=== PATIENT | male | born 1970 | race Caucasian/White ===

== ENCOUNTER 2018-10-04 13:30 | Emergency (ER) | payer SELFPAY ==
[~2018-10-04] VITALS: Ht 188 cm; Wt 90.7 kg
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
--- OUTSIDE RECORDS SUMMARY | 2018-10-04 13:39 | XMS REPORT | CCD ---
Author DEDE Thomason Organization Unknown Address [address] [facility] [address] [place], [place] [address] Care Team Providers Care Mortgage Loan Computation Clerk Name Role Phone DIANA ROSSI MD Attphys DIANA ROSSI MD Prisurg Vital Signs Unknown. Allergies Unknown. Procedures Unknown. History of Immunizations Unknown. Problems Unknown. Results Unknown. Medications Unknown. Medications Administered Unknown. Encounters Encounter Diagnosis Diagnosis Code Start Date LUMBAGO 7242 10/06/2013 Social History Smoking Status Code Start Date End Date Current every day smoker [id number] Patient Decision Aids Unknown. Instructions You were admitted to [facility] on 10/06/2013 with a principle diagnosis of LUMBAGO. You were discharged from [facility] on 10/06/2013. Should you have any questions prior to discharge, please contact a member of your healthcare team. If you have left the hospital and have any questions, please contact your primary care physician. Chief Complaint and Reason For Visit Chief Complaint Date of Onset BACK PAIN Function Status Unknown. Plan of Care Unknown. Referral/Transition of Care Unknown.
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
[2018-10-04] MEDS ORDERED: NS IV 1000 ML 1,000 ML IV ONE (13:49)
[2018-10-04] MEDS ORDERED: LORazepam INJ 2 MG/ML (ATIVAN) VIAL IVP ONE (14:00)
[2018-10-04 14:27] LABS: BASOPHILS % (AUTO) 1 % (0-10); EOSINOPHILS # (AUTO) 0.2 10^3/uL (0.0-0.3); EOSINOPHILS % (AUTO) 2 % (0-10); HEMATOCRIT 45 % (40-54); HEMOGLOBIN 14.4 G/DL (13.3-17.7); LYMPHOCYTES # (AUTO) 1.4 X 10^3 (1.0-4.0); LYMPHOCYTES % (AUTO) 19 % (12-44); MEAN CORPUSCULAR HEMOGLOBIN 29 PG (25-34); MEAN CORPUSCULAR HGB CONC 32 G/DL (32-36); MEAN CORPUSCULAR VOLUME 90 FL (80-99); MEAN PLATELET VOLUME 8.8 FL (7.4-10.4); MONOCYTES % (AUTO) 13 % (0-12); NEUTROPHILS # (AUTO) 4.7 X 10^3 (1.8-7.8); NEUTROPHILS % (AUTO) 64 % (42-75); PLATELET COUNT 322 10^3/uL (130-400); RED BLOOD COUNT 4.94 10^6/uL (4.35-5.85); RED CELL DISTRIBUTION WIDTH 13.4 % (10.0-14.5); WHITE BLOOD COUNT 7.3 10^3/uL (4.3-11.0)
[2018-10-04 14:42] LABS: INR 1.1 (0.8-1.4); PROTHROMBIN TIME PATIENT 14.2 SEC (12.2-14.7)
[2018-10-04 14:49] LABS: ALANINE AMINOTRANSFERASE 23 U/L (0-55); ALBUMIN 3.9 GM/DL (3.2-4.5); ALKALINE PHOSPHATASE 79 U/L (40-136); BILIRUBIN,TOTAL 0.2 MG/DL (0.1-1.0); BUN/CREATININE RATIO 29; CALCIUM 9.5 MG/DL (8.5-10.1); CARBON DIOXIDE 25 MMOL/L (21-32); CHLORIDE 100 MMOL/L (98-107); CREATININE SERUM 0.94 MG/DL (0.60-1.30); GFR ESTIMATED > 60; GLUCOSE 119 MG/DL (70-105); POTASSIUM 4.8 MMOL/L (3.6-5.0); SALICYLATE < 5.0 MG/DL (5.0-20.0); SODIUM 135 MMOL/L (135-145); TOTAL PROTEIN 8.1 GM/DL (6.4-8.2)
[2018-10-04 14:51] LABS: ACETAMINOPHEN < 10 UG/ML (10-30)
[2018-10-04] MEDS ORDERED: ACETAMINOPHEN 500 MG TAB (TYLENOL) PO ONE (15:30)
[2018-10-04] MEDS ORDERED: KETOROLAC 30 MG/ML VIAL IVP ONE (15:30)
[2018-10-04 15:31] LABS: BILIRUBIN,URINE NEGATIVE (NEGATIVE); CLARITY,URINE CLEAR; COLOR,URINE YELLOW; GLUCOSE, URINE (UA) NEGATIVE (NEGATIVE); KETONES,URINE NEGATIVE (NEGATIVE); LEUKOCYTE ESTERASE ,URINE NEGATIVE (NEGATIVE); NITRITE,URINE NEGATIVE (NEGATIVE); PH,URINE 6.5 (5-9); PROTEIN,URINE NEGATIVE (NEGATIVE); UROBILINOGEN,URINE NORMAL (NORMAL)
[2018-10-04 15:44] LABS: BACTERIA,URINE NEGATIVE /HPF
[2018-10-04 15:47] LABS: AMPHETAMINE SCREEN, URINE POSITIVE (NEGATIVE); BARBITURATE SCREEN URINE NEGATIVE (NEGATIVE); BENZODIAZEPINES SCREEN URINE NEGATIVE (NEGATIVE); CANNABINOID SCREEN, URINE POSITIVE (NEGATIVE); COCAINE SCREEN URINE NEGATIVE (NEGATIVE); METHADONE STAT NEGATIVE (NEGATIVE); METHAMPHETAMINE SCREEN URINE S POSITIVE (NEGATIVE); OPIATE SCREEN URINE NEGATIVE (NEGATIVE); OXYCODONE STAT NEGATIVE (NEGATIVE); PROPOXYPHENE STAT NEGATIVE (NEGATIVE); TRICYCLIC ANTIDEPRESSANTS SCRE NEGATIVE (NEGATIVE)
[2018-10-04] MEDS ORDERED: CEPH-507 PO (17:33)
[2018-10-04] MEDS ORDERED: CEPHALEXIN 250 MG (KEFLEX) CAP PO ONE ×2 (17:33→17:45)
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
--- NOTE | 2018-10-04 17:36 | Diagnostic Imaging Report ---
PROCEDURE: CT head and CT cervical spine without contrast. TECHNIQUE: Multiple contiguous axial images were obtained through the brain and cervical spine without the use of intravenous contrast. Sagittal and coronal reformations through the cervical spine were then performed. INDICATION: Head and neck pain, seizure. COMPARISON: None. CT HEAD: There is some minimal cerebral volume loss. No focus of acute ischemia or hemorrhage is seen. The ventricular size is normal. There is no extra-axial fluid collection. No focus of acute ischemia or hemorrhage is identified. The bony calvarium is intact. There is mucosal thickening in the right maxillary sinus. Mastoids are clear. IMPRESSION: No acute intracranial abnormalities. CT CERVICAL SPINE: There is some motion artifact at the cervicothoracic junction. Otherwise, alignment is normal. There is no traumatic malalignment, fracture, or significant degeneration. There is no osseous lesion. IMPRESSION: No traumatic malalignment or fracture. Dictated by: Dictated on workstation # [id number]
[2018-10-04 17:41] VITALS: BP 132/91
== END 2018-10-04 17:41 | disposition home or self-care (01) ==
LOC: EDUNIT# 13:30 → ER 13:34
DX: S09.90XA Unspecified injury of head, initial encounter (principal); F19.10 Other psychoactive substance abuse, uncomplicated; L03.115 Cellulitis of right lower limb; E11.9 Type 2 diabetes mellitus without complications; F15.10 Other stimulant abuse, uncomplicated; F11.10 Opioid abuse, uncomplicated; F12.10 Cannabis abuse, uncomplicated; F17.210 Nicotine dependence, cigarettes, uncomplicated; Z88.0 Allergy status to penicillin; X58.XXXA Exposure to other specified factors, initial encounter
CPT/HCPCS: 36415; 70450; 72125; 80053; 80306; 80320; 80329; 81000; 83605; 85025; 85610; 85730; 87040

== ENCOUNTER 2019-02-26 12:53 | Emergency (ER) | payer OTHER ==
[~2019-02-26 12:53] MED LIST: CEPH-507 PO
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
--- NOTE | 2019-02-26 13:06 | NUR ---
pt called from waiting room. data capture clerk informs this rn pt left to use rr around the remy.
--- NOTE | 2019-02-26 13:12 | NUR ---
Pt called from waiting room at this time and ambulated to room 8. Pt states, "I need some help." Pt reports he is going through some marital issues and is currently living at a friends house. Pt states, "I dont think I should be alone right now." When pt asked if he is suicidal, pt reports "I have been having some thoughts." Pt states he does not have access to a gun but has thought about hanging himself. Pt appears very anxious and is pulling as bp cuff and pulse ox chords. Pt states, "I think this was a bad idea, I dont want to be admitted any where." Pt informed once we get all his triage information Dr would come in and see him and we could have [facility] come screen him as well. Pt informed that we are here to help and try to figure out a plan for his care. Pt states he agrees to wait in his room and see the Dr. Pt states, "I will not go to [place] in patient or anywhere else." Pt starts packing up his belongings indicating he may leave, this rn goes to find Doctor to see patient.
--- NOTE | 2019-02-26 13:20 | NUR ---
pt seen leaving room walking towards ED exit. Pt refuses help or treatment and agrees to sign ama form. Pt refuses to have [facility] follow up on him as well when offered. PD called for pt welfare check.
== END 2019-02-26 13:20 | disposition left against medical advice (07) ==
LOC: EDUNIT# 12:53 → ER 12:54
DX: F29 Unspecified psychosis not due to a substance or known physiological condition (principal)

== ENCOUNTER 2019-03-18 14:56 | Emergency (ER) | payer OTHER ==
[~2019-03-18] VITALS: Ht 188 cm; Wt 95.3 kg
[2019-03-18] MEDS ORDERED: HYDR-4226 PO (15:14)
[2019-03-18] MEDS ORDERED: SULF1TAB35 PO (15:14)
[2019-03-18] MEDS ORDERED: CEPH-507 PO (15:14)
--- NOTE | 2019-03-18 15:14 | ED Integumentary General ---
General Chief Complaint: Skin/Wound Problems Stated Complaint: MRSA Nursing Triage Note: PATIENT STATES THAT HE HAD A SMALL CUT ON HIS RIGHT LOWER LEG THAT BEGAN TO LOOK INFECTED 3 DAYS AGO. HE JUST GOT OUT OF S[facility]IOR LIVING TODAY SO DECIDED TO COME TO THE ER. Source: patient Exam Limitations: no limitations History of Present Illness Date Seen by Provider: Mar 18, 2019 Time Seen by Provider: 15:09 Initial Comments To ER per private vehicle from home with reports of an infection to the right knee. This began about a week ago as a small cut, about 3 days ago while in residential which started to look infected with some redness. He has got out of residential today so decided to come this looked at. No fevers or chills. Timing/Duration: constant, getting worse Severity: moderate Associated Symptoms: denies symptoms Allergies and Home Medications Allergies Coded Allergies: Penicillins (Verified Allergy, Unknown, 10/04/18) amoxicillin (Verified Allergy, Unknown, 10/04/18) Home Medications Cephalexin 500 Mg Capsule, 500 MG PO TID Prescribed by: RENETTA CRISTOBAL on 10/04/18 4175 Patient Home Medication List Home Medication List Reviewed: Yes Review of Systems Review of Systems Constitutional: see HPI; No chills, No fever EENTM: see HPI Respiratory: no symptoms reported Cardiovascular: no symptoms reported Genitourinary: no symptoms reported Musculoskeletal: no symptoms reported Skin: see HPI Psychiatric/Neurological: No Symptoms Reported Endocrine: No Symptoms Reported Past Ocfnqbx-Eyvfln-Avxrai Hx Patient Social History Alcohol Use: Rarely Uses Number of Drinks Today: II Alcohol Beverage of Choice: Other Recreational Drug Use: No Drug of Choice: meth, weed, heroine Smoking Status: Current Everyday Smoker Type Used: Cigarettes 2nd Hand Smoke Exposure: Yes Recent Foreign Travel: No Contact w/Someone Who Travel: No Recent Infectious Disease Expo: No Recent Hopitalizations: No Physical Abuse: No Sexual Abuse: No Past Medical History Surgeries: Yes Respiratory: No Cardiac: Yes Neurological: No Genitourinary: No Gastrointestinal: No Musculoskeletal: No Endocrine: Yes Diabetes, Non-Insulin dep HEENT: No Cancer: No Psychosocial: No Integumentary: No Blood Disorders: No Adverse Reaction/Blood Tranf: No Physical Exam Vital Signs Vital Signs - First Documented 03/18/19 15:00 Temp 98.4 Pulse 126 Resp 20 B/P (MAP) 134/90 (105) Pulse Ox 96 Capillary Refill : Less Than 3 Seconds General Appearance: WD/WN, no apparent distress Respiratory: no respiratory distress, no accessory muscle use Gastrointestinal: normal bowel sounds, non tender Neurologic/Psychiatric: alert, normal mood/affect, oriented x 3 Skin: normal color, warm/dry Skin Problem Location: lower extremities Skin Problem Character: abscess, other (well-demarcated area of erythema about 6 cm to the medial aspect of the right knee with a 2 cm area of induration to the center of this. No drainage. No fluctuance.) Progress/Results/Core Measures Results/Orders Vital Signs/I&O 03/18/19 15:00 Temp 98.4 Pulse 126 Resp 20 B/P (MAP) 134/90 (105) Pulse Ox 96 Blood Pressure Mean: 105 Departure Impression Primary Impression: Abscess Additional Impression: Cellulitis Qualified Codes: L03.115 - Cellulitis of right lower limb Disposition: HOME, SELF-CARE Condition: Stable Departure-Patient Inst. Referrals: NO,LOCAL PHYSICIAN (PCP/Family) Primary Care Physician Patient Instructions: Cellulitis (Skin Infection), Adult (DC) Add. Discharge Instructions: 1. Warm compresses to this area. He should notice improvement in about 2-3 days. The pain medication and both antibiotics as directed. All discharge instructions reviewed with patient and/or family. Voiced understanding. Scripts Sulfamethoxazole/Trimethoprim (Bactrim Ds Tablet) 1 Each Tablet 1 EACH PO BID, #14 TAB Prov: SHALONDA MEADOWS APRN 03/18/19 Cephalexin (Keflex) 500 Mg Capsule 500 MG PO TID, #21 CAP Prov: SHALONDA MEADOWS APRN 03/18/19 Hydrocodone/Acetaminophen ([place] 5-325 Tablet) 1 Each Tablet 1 TAB PO Q4-6HR for Pain MDD 10 TABS for 2 Days, #10 TAB Do not fill unless Keflex and Bactrim is also filled Prov: SHALONDA MEADOWS APRN 03/18/19 SHALONDA MEADOWS APRN Mar 18, 2019 15:14
[2019-03-18 15:20] VITALS: BP 134/90
== END 2019-03-18 15:22 | disposition home or self-care (01) ==
LOC: ER 14:56 → EDUNIT# 14:56 → ER 15:22
DX: L03.115 Cellulitis of right lower limb (principal); L02.415 Cutaneous abscess of right lower limb; E11.9 Type 2 diabetes mellitus without complications; F17.210 Nicotine dependence, cigarettes, uncomplicated; Z88.0 Allergy status to penicillin; Z88.1 Allergy status to other antibiotic agents
CPT/HCPCS: 99282

== ENCOUNTER 2019-06-02 16:55 | Inpatient (IN) | payer OTHER | END 2019-06-03 14:10 | disposition left against medical advice (07) | LOC: 4TH 16:55 ==

== ENCOUNTER 2019-07-01 14:59 | Emergency (ER) | payer OTHER ==
[~2019-07-01] VITALS: Ht 190 cm; Wt 93.1 kg
[~2019-07-01 14:59] MED LIST changes: +HYDR-4226 PO; +SULF1TAB35 PO
--- NOTE | 2019-07-01 17:07 | NUR ---
PT LEFT ED, STATES GOING TO MEET HIS DISCHARGED AT THIS X
[2019-07-01 17:08] VITALS: BP 144/87
== END 2019-07-01 17:08 | disposition left against medical advice (07) ==
LOC: EDUNIT# 14:59 → ER 15:01
DX: E11.69 Type 2 diabetes mellitus with other specified complication (principal); M86.9 Osteomyelitis, unspecified
CPT/HCPCS: 99283

== ENCOUNTER 2019-07-14 21:38 | Observation (INO) | payer OTHER ==
[~2019-07-14] VITALS: Ht 187.9 cm; Wt 85.7 kg
--- NOTE | 2019-07-14 22:15 | NUR ---
pt denies being able to void at this time. informed he needed to remain npo until after evaluated by e.d. provider.
[2019-07-14] MEDS ORDERED: NS IV 1000 ML 1,000 ML IV SCH (22:25)
[2019-07-14 22:28] LABS: BASOPHILS % (AUTO) 1 % (0-10); EOSINOPHILS # (AUTO) 0.3 10^3/uL (0.0-0.3); EOSINOPHILS % (AUTO) 5 % (0-10); HEMATOCRIT 41 % (40-54); HEMOGLOBIN 13.4 G/DL (13.3-17.7); LYMPHOCYTES # (AUTO) 2.4 X 10^3 (1.0-4.0); LYMPHOCYTES % (AUTO) 35 % (12-44); MEAN CORPUSCULAR HEMOGLOBIN 29 PG (25-34); MEAN CORPUSCULAR HGB CONC 32 G/DL (32-36); MEAN CORPUSCULAR VOLUME 90 FL (80-99); MEAN PLATELET VOLUME 9.1 FL (7.4-10.4); MONOCYTES # (AUTO) 0.6 X 10^3 (0.0-1.0); MONOCYTES % (AUTO) 9 % (0-12); NEUTROPHILS # (AUTO) 3.6 X 10^3 (1.8-7.8); NEUTROPHILS % (AUTO) 51 % (42-75); PLATELET COUNT 298 10^3/uL (130-400); RED CELL DISTRIBUTION WIDTH 14.5 % (10.0-14.5)
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
[2019-07-14 22:40] LABS: INR 1.1 (0.8-1.4); PROTHROMBIN TIME PATIENT 14.7 SEC (12.2-14.7)
[2019-07-14] MEDS ORDERED: fentaNYL INJECTION 100 MCG/2 ML AMP IVP ONE (22:45)
[2019-07-14 22:48] LABS: ALANINE AMINOTRANSFERASE 26 U/L (0-55); ALBUMIN 3.7 GM/DL (3.2-4.5); ALKALINE PHOSPHATASE 52 U/L (40-136); BILIRUBIN,TOTAL 0.3 MG/DL (0.1-1.0); BUN/CREATININE RATIO 19; CALCIUM 8.8 MG/DL (8.5-10.1); CARBON DIOXIDE 25 MMOL/L (21-32); CHLORIDE 102 MMOL/L (98-107); CREATININE SERUM 1.01 MG/DL (0.60-1.30); GFR ESTIMATED > 60; GLUCOSE 167 MG/DL (70-105); POTASSIUM 3.9 MMOL/L (3.6-5.0); SODIUM 139 MMOL/L (135-145); TOTAL PROTEIN 6.8 GM/DL (6.4-8.2)
[2019-07-14 22:53] LABS: BILIRUBIN,URINE NEGATIVE (NEGATIVE); CLARITY,URINE CLEAR; COLOR,URINE YELLOW; GLUCOSE, URINE (UA) NEGATIVE (NEGATIVE); KETONES,URINE NEGATIVE (NEGATIVE); LEUKOCYTE ESTERASE ,URINE NEGATIVE (NEGATIVE); NITRITE,URINE NEGATIVE (NEGATIVE); PH,URINE 6.5 (5-9); PROTEIN,URINE 1+ (NEGATIVE)
[2019-07-14 23:02] LABS: AMPHETAMINE SCREEN, URINE POSITIVE (NEGATIVE); BARBITURATE SCREEN URINE NEGATIVE (NEGATIVE); BENZODIAZEPINES SCREEN URINE NEGATIVE (NEGATIVE); CANNABINOID SCREEN, URINE POSITIVE (NEGATIVE); COCAINE SCREEN URINE NEGATIVE (NEGATIVE); METHADONE STAT NEGATIVE (NEGATIVE); METHAMPHETAMINE SCREEN URINE S NEGATIVE (NEGATIVE); OPIATE SCREEN URINE NEGATIVE (NEGATIVE); OXYCODONE STAT NEGATIVE (NEGATIVE); PROPOXYPHENE STAT NEGATIVE (NEGATIVE); TRICYCLIC ANTIDEPRESSANTS SCRE NEGATIVE (NEGATIVE)
[2019-07-14 23:05] LABS: AMORPHOUS SEDIMENT,UR MOD AMOR URATES /LPF; BACTERIA,URINE NEGATIVE /HPF
[2019-07-14] MEDS ORDERED: TETANUS,DIPTH,PERTUSS P/F (BOOSTRIX) 0.5 ML VIAL IM ONE (23:15)
--- NOTE | 2019-07-15 00:11 | NUR ---
BERNADETTE WELLS admitted to room 405-1, with an admitting diagnosis of OSTEOMYELITIS R 3RD TOE, IDDM, HX METH ABUSE, on 07/14/19 from ED via WC, accompanied by STAFF.BERNADETTE WELLS introduced to surroundings, call light, bed controls, phone, TV, temperature control, lights, meal times, smoking policy, visitor policy, side rail policy, bathrooms and showers. Patient Rights given to patient in the handbook. BERNADETTE WELLS verbalizes understanding that [facility] is not responsible for the loss or damage to any personal effects or valuables that are kept in the patients possession during their hospitalization. THE PATIENT'S PLAN OF CARE WAS DISCUSSED WITH THE PT, PT DENIES ANY QUESTIONS OR CONCERNS AT THIS TIME. BERNADETTE WELLS verbalizes understanding of Interdisciplinary Patient Education. Patient and/or family were informed about the Rapid Response Team and its purpose.
[2019-07-15] MEDS ORDERED: ONDANSETRON 4 MG/2 ML (SDV) Z0FRAN IV PRN (00:30)
[2019-07-15] MEDS ORDERED: ACETAMINOPHEN 325 MG TABLET PO PRN (00:30)
[2019-07-15] MEDS ORDERED: NS IV 1000 ML 1,000 ML IV SCH (00:30)
[2019-07-15 00:38] VITALS: BP 135/62
[2019-07-15] MEDS ORDERED: VANCOMYCIN 2000 MG/NS 500 ML IVPB IV SCH ×2 (00:45)
[2019-07-15] MEDS: LORazepam INJ 2 MG/ML (ATIVAN) VIAL IV PRN ×2 (00:55→07:00)
[2019-07-15] MEDS ORDERED: VANCOMYCIN 1000 MG/VIAL ONE (01:25)
[2019-07-15] MEDS ORDERED: NS IV 500 ML 500 ML ONE (01:26)
[2019-07-15] MEDS: fentaNYL INJECTION 100 MCG/2 ML AMP IV PRN ×2 (04:00→09:32)
[2019-07-15 04:25] VITALS: BP 130/76
[2019-07-15 05:45] LABS: BASOPHILS % (AUTO) 1 % (0-10); EOSINOPHILS # (AUTO) 0.4 10^3/uL (0.0-0.3); EOSINOPHILS % (AUTO) 6 % (0-10); HEMATOCRIT 39 % (40-54); HEMOGLOBIN 12.4 G/DL (13.3-17.7); LYMPHOCYTES # (AUTO) 2.1 X 10^3 (1.0-4.0); LYMPHOCYTES % (AUTO) 36 % (12-44); MEAN CORPUSCULAR HEMOGLOBIN 29 PG (25-34); MEAN CORPUSCULAR HGB CONC 32 G/DL (32-36); MEAN CORPUSCULAR VOLUME 91 FL (80-99); MONOCYTES # (AUTO) 0.7 X 10^3 (0.0-1.0); MONOCYTES % (AUTO) 12 % (0-12); NEUTROPHILS # (AUTO) 2.7 X 10^3 (1.8-7.8); NEUTROPHILS % (AUTO) 46 % (42-75); PLATELET COUNT 288 10^3/uL (130-400); RED CELL DISTRIBUTION WIDTH 14.7 % (10.0-14.5); WHITE BLOOD COUNT 5.8 10^3/uL (4.3-11.0)
[2019-07-15 06:00] LABS: ALANINE AMINOTRANSFERASE 23 U/L (0-55); ALBUMIN 3.2 GM/DL (3.2-4.5); ALKALINE PHOSPHATASE 50 U/L (40-136); BILIRUBIN,TOTAL 0.2 MG/DL (0.1-1.0); BUN/CREATININE RATIO 25; CALCIUM 8.2 MG/DL (8.5-10.1); CARBON DIOXIDE 22 MMOL/L (21-32); CHLORIDE 105 MMOL/L (98-107); GFR ESTIMATED > 60; GLUCOSE 146 MG/DL (70-105); POTASSIUM 3.8 MMOL/L (3.6-5.0); SODIUM 139 MMOL/L (135-145); TOTAL PROTEIN 5.6 GM/DL (6.4-8.2)
[2019-07-15] MEDS: inSUlin ASPART (NovoLOG) 1 UNIT/0.01 ML (CHARGE PER UNIT) SC SCH ×2 (06:13→10:52)
--- NOTE | 2019-07-15 06:52 | NUR ---
dr. jara notified of consult
--- NOTE | 2019-07-15 07:01 | NUR ---
PT REPORTS BEING ANXIOUS & REQUESTING PRN LORAZEPAM, LORAZEPAM GIVEN
--- NOTE | 2019-07-15 07:20 | Diagnostic Imaging Report ---
INDICATION: Right foot and toe pain patient has osteomyelitis, and family history of it. His right 3rd digit has a sore on it. COMPARISON STUDY: None FINDINGS: 3 views of the right foot demonstrates soft tissue swelling over the distal 3rd digit with some erosions consistent with osteomyelitis. IMPRESSION: There is osteomyelitis of the tuft of the right 3rd digit. Dictated by: Dictated on workstation # [id number]
--- NOTE | 2019-07-15 07:44 | NUR ---
VANCOMYCIN DOSING SCR 0.8; CRCL ~ 132; BOLUS VANC 2 GM ALREADY GIVEN THEN VANC 15 MG/KG X 85 KG ~ 1500 MG Q12H CHECK TROUGH LEVEL BEFORE 3RD DOSE 07/16 1300 HOLD DOSE AND CONTACT PHARMACY IF LEVEL IS GREATER THAN 20 OR LESS THAN 10
[2019-07-15 08:00] VITALS: BP 148/80
--- NOTE | 2019-07-15 08:42 | Consultation - Surgery ---
YOLANDA LOU,MED STUDENT 07/15/19 0842: History of Present Illness History of Present Illness Patient Consulted On(omar/time) 07/15/19 08:37 Date Seen by Provider: Jul 15, 2019 Time Seen by Provider: 08:30 History of Present Illness Consultation as requested for osteomyelitis of R 3rd toe. Patient seen and examined. Patient reports that wound on his R 3rd toe has been present for 7-8 months. He presented to the ED last night due to increased pain in the toe. The pain is made worse with ambulation. He reports that "smoking pot" and drinking alcohol make the pain better. Associated symptoms include subjective fever, dizziness, and nausea. The pain does not radiate. He rates the pain as an 8/10. Patient was hospitalized several weeks ago for the same complaint but left AMA after a toe amputation was suggested. He now states that he would rather try antibiotic therapy prior to surgical intervention. He has a longstanding history of uncontrolled diabetes and is noncompliant with treatment. He states that he is prescribed metformin but he does not take it and when asked why, he states "I don't know". Patient left AMA before treatment options could be discussed. Allergies and Home Medications Allergies Coded Allergies: Penicillins (Verified Allergy, Unknown, 06/02/19) amoxicillin (Verified Allergy, Unknown, 06/02/19) morphine (Verified Adverse Reaction, Mild, 07/15/19) headache Home Medications No Active Prescriptions or Reported Meds Patient Home Medication List Home Medication List Reviewed: Yes Past Jkqywiz-Dgjoid-Qrrhdw Hx Patient Social History Alcohol Use: Regular Use (1/2 pint, 1-2x/week) Number of Drinks Today: II Recreational Drug Use: Yes Drug of Choice: denies at this time, however previous IV meth. Smoking Status: Current Everyday Smoker (1/2 ppd) Type Used: Cigarettes 2nd Hand Smoke Exposure: Yes Recent Foreign Travel: No Contact w/Someone Who Travel: No Recent Infectious Disease Expo: No Recent Hopitalizations: No Immunizations Up To Date Tetanus Booster (TDap): Unknown Seasonal Allergies Seasonal Allergies: No Surgeries History of Surgeries: Yes (knee) Surgeries: Orthopedic (discectomy, knee arthroscopy) Respiratory History of Respiratory Disorde: No Cardiovascular History of Cardiac Disorders: No Neurological History of Neurological Disord: No Genitourinary History of Genitourinary Disor: No Gastrointestinal History of Gastrointestinal Di: No Musculoskeletal History of Musculoskeletal Dis: No Endocrine History of Endocrine Disorders: Yes (noncompliant) Endocrine Disorders: Diabetes, Non-Insulin dep HEENT History of HEENT Disorders: No Cancer History of Cancer: No Psychosocial History of Psychiatric Problem: No Integumentary History of Skin or Integumenta: No Blood Transfusions History of Blood Disorders: No Adverse Reaction to a Blood Tr: No Family Medical History Significant Family History: Cancer (breast cancer - mom), Diabetes (dad) Review of Systems-General Constitutional: No chills; fever EENTM: No hearing loss, No vision loss Respiratory: No cough, No short of breath Cardiovascular: No chest pain, No palpitations Gastrointestinal: No abdominal pain; nausea Genitourinary: No dysuria, No frequency Musculoskeletal: No joint pain; other (toe pain) Skin: No rash; other (toe ulcer) Psychiatric/Neurological: Denies Headache; Numbness (neuropathy) Physical Exam-General Problems Physical Exam Vital Signs Vital Signs - First Documented 07/14/19 21:45 Temp 35.9 Pulse 101 Resp 18 B/P (MAP) 133/90 (104) Pulse Ox 99 O2 Delivery Room Air Capillary Refill : Less Than 3 Seconds General Appearance: WD/WN, no apparent distress HEENT: PERRL/EOMI, pharynx normal Neck: non-tender, supple Respiratory: chest non-tender, lungs clear, normal breath sounds, no respiratory distress, no accessory muscle use Cardiovascular: regular rate, rhythm, no murmur Gastrointestinal: non tender, soft; No distended Extremities: non-tender, no pedal edema Skin: warm/dry, other (dry appearing ulceration on R third toe) Lymphatic: no adenopathy Data Review Labs Laboratory Tests 07/14/19 22:15: White Blood Count 7.0, Red Blood Count 4.57, Hemoglobin 13.4, Hematocrit 41, Mean Corpuscular Volume 90, Mean Corpuscular Hemoglobin 29, Mean Corpuscular Hemoglobin Concent 32, Red Cell Distribution Width 14.5, Platelet Count 298, Mean Platelet Volume 9.1, Neutrophils (%) (Auto) 51, Lymphocytes (%) (Auto) 35, Monocytes (%) (Auto) 9, Eosinophils (%) (Auto) 5, Basophils (%) (Auto) 1, Neutrophils # (Auto) 3.6, Lymphocytes # (Auto) 2.4, Monocytes # (Auto) 0.6, Eosinophils # (Auto) 0.3, Basophils # (Auto) 0.0, Prothrombin Time 14.7, INR Comment 1.1, Activated Partial Thromboplast Time 29, Sodium Level 139, Potassium Level 3.9, Chloride Level 102, Carbon Dioxide Level 25, Anion Gap 12, Blood Urea Nitrogen 19H, Creatinine 1.01, Estimat Glomerular Filtration Rate > 60, BUN/Creatinine Ratio 19, Glucose Level 167H, Lactic Acid Level 1.92, Calcium Level 8.8, Corrected Calcium 9.0, Total Bilirubin 0.3, Aspartate Amino Transf (AST/SGOT) 21, Alanine Aminotransferase (ALT/SGPT) 26, Alkaline Phosphatase 52, C-Reactive Protein High Sensitivity 0.20, Total Protein 6.8, Albumin 3.7 07/14/19 22:44: Urine Color YELLOW, Urine Clarity CLEAR, Urine pH 6.5, Urine Specific Bryan 1.020, Urine Protein 1+H, Urine Glucose (UA) NEGATIVE, Urine Ketones NEGATIVE, Urine Nitrite NEGATIVE, Urine Bilirubin NEGATIVE, Urine Urobilinogen 1, Urine Leukocyte Esterase NEGATIVE, Urine RBC (Auto) NEGATIVE, Urine RBC NONE, Urine WBC NONE, Urine Crystals PRESENTH, Urine Amorphous Sediment MOD ROSALINO URATESH, Urine Bacteria NEGATIVE, Urine Casts NONE, Urine Mucus NEGATIVE, Urine Culture Indicated NO, Urine Opiates Screen NEGATIVE, Urine Oxycodone Screen NEGATIVE, Urine Methadone Screen NEGATIVE, Urine Propoxyphene Screen NEGATIVE, Urine Barbiturates Screen NEGATIVE, Ur Tricyclic Antidepressants Screen NEGATIVE, Urine Phencyclidine Screen NEGATIVE, Urine Amphetamines Screen POSITIVEH, Urine Methamphetamines Screen NEGATIVE, Urine Benzodiazepines Screen NEGATIVE, Urine Cocaine Screen NEGATIVE, Urine Cannabinoids Screen POSITIVEH 07/15/19 05:20: White Blood Count 5.8, Red Blood Count 4.31L, Hemoglobin 12.4L, Hematocrit 39L, Mean Corpuscular Volume 91, Mean Corpuscular Hemoglobin 29, Mean Corpuscular Hemoglobin Concent 32, Red Cell Distribution Width 14.7H, Platelet Count 288, Mean Platelet Volume 9.0, Neutrophils (%) (Auto) 46, Lymphocytes (%) (Auto) 36, Monocytes (%) (Auto) 12, Eosinophils (%) (Auto) 6, Basophils (%) (Auto) 1, Neutrophils # (Auto) 2.7, Lymphocytes # (Auto) 2.1, Monocytes # (Auto) 0.7, Eosinophils # (Auto) 0.4H, Basophils # (Auto) 0.0, Sodium Level 139, Potassium Level 3.8, Chloride Level 105, Carbon Dioxide Level 22, Anion Gap 12, Blood Urea Nitrogen 20H, Creatinine 0.80, Estimat Glomerular Filtration Rate > 60, BUN/Creatinine Ratio 25, Glucose Level 146H, Calcium Level 8.2L, Corrected Calcium 8.8, Total Bilirubin 0.2, Aspartate Amino Transf (AST/SGOT) 19, Alanine Aminotransferase (ALT/SGPT) 23, Alkaline Phosphatase 50, Total Protein 5.6L, Albumin 3.2 Assessment/Plan Assessment/Plan Assessment/Plan R 3rd toe ulceration Osteomyelitis Patient left AMA before treatment options could be discussed. Clinical Quality Measures DVT/VTE Risk/Contraindication: Risk Factor Score Per Nursin RFS Level Per Nursing on Admit: 4+=Very High BRENDAN GRIMALDO DO 07/15/19 1943: Allergies and Home Medications Allergies Coded Allergies: Penicillins (Verified Allergy, Unknown, 06/02/19) amoxicillin (Verified Allergy, Unknown, 06/02/19) morphine (Verified Adverse Reaction, Mild, 07/15/19) headache Home Medications No Active Prescriptions or Reported Meds Supervisory-Addendum Brief Verification & Attestation Participated in pt care: other Personally performed: other Care discussed with: other Procedures: other Pt left AMA before I saw him. YOLANDA LOU,MED STUDENT Jul 15, 2019 08:42 BRENDAN GUTIÉRREZ DO Jul 15, 2019 19:43 POS
--- NOTE | 2019-07-15 09:03 | NUR ---
SPOKE WITH THE PATIENT ABOUT MEDICATIONS. HE STATES HE DOES NOT TAKE ANYTHING PRESCRIPTION OR OTC AT THIS TIME. HE DOES NOT REALLY HAVE A PREFERENCE OF PHARMACY, HE STATES [facility] HOWEVER HE DOES EXPRESS CONCERN ABOUT BEING ABLE TO AFFORD ANY MEDICATION IF IT IS PRESCRIBED TO HIM.
[2019-07-15] MEDS ORDERED: cefTRIAXone FOR IV USE 2,000 MG in WATER (STERILE) FOR INJECTION 20 ML IV SCH (10:15)
--- NOTE | 2019-07-15 10:53 | NUR ---
CM/SS spoke with the patient in regards to the SS consult. Patient stated that he does have court on 07/16 for a felony something, he was unsure of the charges. He is currently on [place] with [employer] [employer]. He wanted a District Court called to postpone his Court that is scheduled for tomorrow. Discussed would be willing to call District Court tomorrow if he was in surgery. He had left AMA last hospital stay. Patient was bouncing and moving all over bed and started to mess with his IV, stating that if no one wanted to help with his court date then he wasn't going to stay and would just have to leave to take care of that. He asked for the number for [facility] [address] [facility] and it was provided to him ([phone]). Nursing was updated and stated that he also has threatened to smoke in the bathroom.
--- NOTE | 2019-07-15 11:50 | NUR ---
IV DC'd. Catheter intact.
--- NOTE | 2019-07-15 11:50 | NUR ---
CM/SS spoke with the patient with RNing present after RNing requested SS to speak with him and possibly his employment security officer. Patient did not want to speak with his employment security officer, wanted to leave to see him as he was supposed to have reported after he was released from [facility] and did not report to his employment security officer. He did receive a call from Cristela with [facility] and asked that SS speak with her, she stated that he has been receiving services there and was trying to coordinate care for after he would have surgery. Discussed that if he wanted a SNF for post op recovery, referrals could be sent and could be a possibility. Discussed again that would not send anything this day to the Court and that if he stayed and was having surgery tomorrow then would send something to the court at that time.
--- NOTE | 2019-07-15 11:50 | NUR ---
Pt stated that he needed to leave the hospital. This RN informed the pt that leaving the hospital at this time would be leaving against medical advice. This RN also informed the pt of the risks of leaving against medical advice (worsening of infection) as well as the benefits to staying in the hospital to continue receiving care (resolution of infection). CM/ SS in the room at this time to offer assistance to help pt stay in the hospital to continue care, see CM/SS note. After discussion with CM/SS and this RN, pt refused assistance of CM/SS, pt requested again to leave against medical advice. Pt confrontational towards this RN and CM/SS. Dr. Hitchcock notified of pt's request. Against Medical Advice form signed, dated, witnessed, and placed in chart.
[2019-07-15] MEDS ORDERED: VANCOMYCIN INJECTION 1,500 MG in NS IV 500 ML 500 ML IV SCH (14:00)
--- NOTE | 2019-07-15 14:29 | Discharge Summary ---
Discharge Summary Hospital Course Final Diagnosis: T2DM with left diabetic foot ulcer Hospital Course Date of Admission: Jul 14, 2019 at 22:30 Admission Diagnosis : Type 2 diabetes mellitus with left diabetic foot ulcer Family Physician/Provider: Kim Mark Physician Date of Discharge: 07/15/19 Discharge Diagnosis: Type 2 diabetes mellitus with left diabetic foot ulcer Hospital Course: Collin Lewis is a 49yoM with PMH T2DM, polysubstance abuse, who was recently admitted with a diabetic foot ulcer and osteomyelitis and left AMA presented again with worsening toe pain. He was started on IV antibiotics and surgery was consulted. He stated that he was to have a court date tomorrow. patient services clerk was consulted and arrangements were made to contact them tomorrow to postpone his court date. He then said that he had to meet with his booking officer. We off ered to contact his booking officer and discuss the situation, but he refused. He again left AGAINST MEDICAL ADVICE. Labs and Pending Lab Test: Laboratory Tests 07/14/19 22:15: White Blood Count 7.0, Red Blood Count 4.57, Hemoglobin 13.4, Hematocrit 41, Mean Corpuscular Volume 90, Mean Corpuscular Hemoglobin 29, Mean Corpuscular Hemoglobin Concent 32, Red Cell Distribution Width 14.5, Platelet Count 298, Mean Platelet Volume 9.1, Neutrophils (%) (Auto) 51, Lymphocytes (%) (Auto) 35, Monocytes (%) (Auto) 9, Eosinophils (%) (Auto) 5, Basophils (%) (Auto) 1, Neutrophils # (Auto) 3.6, Lymphocytes # (Auto) 2.4, Monocytes # (Auto) 0.6, Eosinophils # (Auto) 0.3, Basophils # (Auto) 0.0, Prothrombin Time 14.7, INR Comment 1.1, Activated Partial Thromboplast Time 29, Sodium Level 139, Potassium Level 3.9, Chloride Level 102, Carbon Dioxide Level 25, Anion Gap 12, Blood Urea Nitrogen 19H, Creatinine 1.01, Estimat Glomerular Filtration Rate > 60, BUN/Creatinine Ratio 19, Glucose Level 167H, Lactic Acid Level 1.92, Calcium Level 8.8, Corrected Calcium 9.0, Total Bilirubin 0.3, Aspartate Amino Transf (AST/SGOT) 21, Alanine Aminotransferase (ALT/SGPT) 26, Alkaline Phosphatase 52, C-Reactive Protein High Sensitivity 0.20, Total Protein 6.8, Albumin 3.7 07/14/19 22:44: Urine Color YELLOW, Urine Clarity CLEAR, Urine pH 6.5, Urine Specific [place] 1.020, Urine Protein 1+H, Urine Glucose (UA) NEGATIVE, Urine Ketones NEGATIVE, Urine Nitrite NEGATIVE, Urine Bilirubin NEGATIVE, Urine Urobilinogen 1, Urine Leukocyte Esterase NEGATIVE, Urine RBC (Auto) NEGATIVE, Urine RBC NONE, Urine WBC NONE, Urine Crystals PRESENTH, Urine Amorphous Sediment MOD ROSALINO URATESH, Urine Bacteria NEGATIVE, Urine Casts NONE, Urine Mucus NEGATIVE, Urine Culture Indicated NO, Urine Opiates Screen NEGATIVE, Urine Oxycodone Screen NEGATIVE, Urine Methadone Screen NEGATIVE, Urine Propoxyphene Screen NEGATIVE, Urine Barbiturates Screen NEGATIVE, Ur Tricyclic Antidepressants Screen NEGATIVE, Urine Phencyclidine Screen NEGATIVE, Urine Amphetamines Screen POSITIVEH, Urine Methamphetamines Screen NEGATIVE, Urine Benzodiazepines Screen NEGATIVE, Urine Cocaine Screen NEGATIVE, Urine Cannabinoids Screen POSITIVEH 07/15/19 05:20: White Blood Count 5.8, Red Blood Count 4.31L, Hemoglobin 12.4L, Hematocrit 39L, Mean Corpuscular Volume 91, Mean Corpuscular Hemoglobin 29, Mean Corpuscular Hemoglobin Concent 32, Red Cell Distribution Width 14.7H, Platelet Count 288, Mean Platelet Volume 9.0, Neutrophils (%) (Auto) 46, Lymphocytes (%) (Auto) 36, Monocytes (%) (Auto) 12, Eosinophils (%) (Auto) 6, Basophils (%) (Auto) 1, Neutrophils # (Auto) 2.7, Lymphocytes # (Auto) 2.1, Monocytes # (Auto) 0.7, Eosinophils # (Auto) 0.4H, Basophils # (Auto) 0.0, Sodium Level 139, Potassium Level 3.8, Chloride Level 105, Carbon Dioxide Level 22, Anion Gap 12, Blood Urea Nitrogen 20H, Creatinine 0.80, Estimat Glomerular Filtration Rate > 60, BUN/Creatinine Ratio 25, Glucose Level 146H, Calcium Level 8.2L, Corrected Calcium 8.8, Total Bilirubin 0.2, Aspartate Amino Transf (AST/SGOT) 19, Alanine Aminotransferase (ALT/SGPT) 23, Alkaline Phosphatase 50, Total Protein 5.6L, Albumin 3.2 07/15/19 10:51: Glucometer 131H Home Meds Active No Active Prescriptions or Reported Medications Assessment/Pt Instructions Patient left AMA. Discharge Instructions Discharge Diet: ADA Diet Activity as Tolerated: Yes Discharge Physical Examination General Appearance: Alert, Oriented X3, No Acute Distress HEENT: Atraumatic, EOMI, Mucous Memb Moist/[place] Respiratory: Clear to Auscultation, Normal Air Movement Cardiovascular: Regular Rate, No Murmurs Abdominal: Normal Bowel Sounds, Soft, No Tenderness Extremities: No Edema, No Tenderness/Swelling Skin: Other (left third toe ulcer) Psych/Mental Status: Mental Status NL, Other (anxious, agitated) Allergies: Coded Allergies: Penicillins (Verified Allergy, Unknown, 06/02/19) amoxicillin (Verified Allergy, Unknown, 06/02/19) morphine (Verified Adverse Reaction, Mild, 07/15/19) headache Discharge Summary Date of Admission Jul 14, 2019 at 22:30 Date of Discharge Jul 15, 2019 at 12:00 Discharge Date: Jul 15, 2019 Discharge Time: 14:21 Admission Diagnosis T2DM with left diabetic foot ulcer Consults/Procedures Consulations General surgery Discharge Diagnosis (1) Type 2 diabetes mellitus with left diabetic foot ulcer Clinical Quality Measures DVT/VTE Risk/Contraindication: Risk Factor Score Per Nursin RFS Level Per Nursing on Admit: 4+=Very High KINA MORALES MD Jul 15, 2019 14:29 POS
--- NOTE | 2019-07-15 14:52 | NUR ---
RD ASSESSMENT PMHx: DM(uncontrolled) PT INTERACTION: Pt was awake and pleasant during nutrition assessment. Pt states current appetite is very good, and has been for some time. Pt states following a regular diet at home, and "eat a lot of food." Pt states no recent issues with n/v/c/d at this time. Pt states some recent wt loss, but could not give an amount or timeframe of weight lost. Note, pt has wound on R 3rd toe, per chart review. Upon visual exam, pt appears to very well nourished with no visible signs of muscle/fat wasting and BMI of 24.3. ABNORMAL NUTRITION-RELATED LAB VALUES: BUN 20 (H); glu 146 (H); Ca 8.2 (L); Pro 5.6 (L) Est. kcal needs: 2319-5766 kcal (25-30 kcal/kg) Est. Pro needs: 102-119 g Pro (1.2-1.4 g Pro/kg) PES STATEMENT: Inadequate protein intake (NI-5.6.1) related to increased protein needs as evidenced by wound (R 3rd toe) INTERVENTION: Continue with current diet order of CHO 75 g/m 0snack diet. Add Ensure HP (vary) to meals TID. Provides 160 kcal and 16 g Pro per serving, for perceived benefits to wound healing. MONITOR/EVALUATE: PO Intake; Plan of Care; Hydration Status; Weight Status; Lab Values Ash [place], MS, RD, LD Ext. [phone]
--- NOTE | 2019-07-15 17:02 | NUR ---
Brand Marketing Intern Daisy Randhawa called in regards to a voice message left by patient about court in the morning at 08:00am. reported patient was in room 405 and his name was Collin. This RN was unable to verify or provide any information due to HIPPA. I offered to call the patient that was in room 405 this morning and have him call her back. The number of [phone] is the incorrect phone number for the patient and only number on file.
[2019-07-16] MEDS ORDERED: TROUGH ORDER-PHARMACY XX NR (13:00)
== END 2019-07-15 12:00 | disposition left against medical advice (07) ==
LOC: EDUNIT# 21:38 → ER 21:39 → 4TH 22:30
PROVIDERS: ADMIT Internal Medicine; ATTEND Internal Medicine
DX: E11.621 Type 2 diabetes mellitus with foot ulcer (principal); M86.9 Osteomyelitis, unspecified; Z79.4 Long term (current) use of insulin; Z86.59 Personal history of other mental and behavioral disorders; Z88.1 Allergy status to other antibiotic agents; Z88.5 Allergy status to narcotic agent; Z88.0 Allergy status to penicillin; Z83.3 Family history of diabetes mellitus
CPT/HCPCS: 36415; 73630; 80053; 80306; 81000; 82962; 83605; 85025; 85610; 85730; 86141; 87040; 87070; 87077; 87205; 90471; 90715; 96361; 96374; G0378

== ENCOUNTER 2019-07-29 16:01 | Emergency (ER) | payer OTHER ==
[~2019-07-29] VITALS: Ht 187 cm; Wt 88.4 kg
--- NOTE | 2019-07-29 16:10 | ED Back Pain ---
General Chief Complaint: Back Problems Stated Complaint: BACK PAIN Source of Information: Patient, EMS Exam Limitations: No Limitations History of Present Illness Date Seen by Provider: Jul 29, 2019 Time Seen by Provider: 16:08 Initial Comments To ER per EMS with reports of back pain and right foot pain. He states that he has osteomyelitis in the right second toe. This suddenly became an issue when he was placed in handcuffs by police to be taken [facility], he collapsed to the ground stating that he has bacteria in his blood and needed to be admitted to the hospital. Location: Lumbar Spine Timing/Duration: 1-2 Days Severity: Moderate Pain/Injury Location: Back Associated Symptoms: lower back pain Allergies and Home Medications Allergies Coded Allergies: Penicillins (Verified Allergy, Unknown, 06/02/19) amoxicillin (Verified Allergy, Unknown, 06/02/19) morphine (Verified Adverse Reaction, Mild, 07/15/19) headache Home Medications No Active Prescriptions or Reported Meds Patient Home Medication List Home Medication List Reviewed: Yes Review of Systems Constitutional: see HPI EENTM: see HPI Respiratory: no symptoms reported Cardiovascular: no symptoms reported Genitourinary: no symptoms reported Musculoskeletal: see HPI Skin: see HPI Psychiatric/Neurological: No Symptoms Reported Past Rvtncwg-Woqgul-Womjlu Hx Patient Social History Alcohol Beverage of Choice: Other Drug of Choice: denies at this time, however previous IV meth. Type Used: Cigarettes 2nd Hand Smoke Exposure: Yes Recent Foreign Travel: No Contact w/Someone Who Travel: No Recent Hopitalizations: No Immunizations Up To Date Tetanus Booster (TDap): Unknown Seasonal Allergies Seasonal Allergies: No Past Medical History Surgeries: Yes (knee) Orthopedic Respiratory: No Cardiac: No Neurological: No Genitourinary: No Gastrointestinal: No Musculoskeletal: No Endocrine: Yes (noncompliant) Diabetes, Non-Insulin dep HEENT: No Cancer: No Psychosocial: No Integumentary: No Blood Disorders: No Adverse Reaction/Blood Tranf: No Family Medical History Cancer, Diabetes Physical Exam Vital Signs Vital Signs - First Documented 07/29/19 16:08 Temp 36.4 Pulse 106 Resp 20 B/P (MAP) 129/92 (104) Capillary Refill : Height, Weight, BMI Height: 6'2.00" Weight: 210lbs. 0oz. 95.955485av; 24.27 BMI Method:Actual General Appearance: No Apparent Distress, WD/WN, Other HEENT: PERRL/EOMI Neck: Full Range of Motion, Normal Inspection Cardiovascular: Regular Rate, Rhythm, No Edema Respiratory: No Accessory Muscle Use, No Respiratory Distress Gastrointestinal: Normal Bowel Sounds, Non Tender Neurologic/Psychiatric: Alert, Oriented x3, No Motor/Sensory Deficits Skin: Normal Color, Warm/Dry Progress/Results/Core Measures Results/Orders My Orders Orders - SHALONDA MEADOWS APRN Cbc With Automated Diff (07/29/19 16:07) Basic Metabolic Panel (07/29/19 16:07) Foot, Right, 3 View (07/29/19 16:07) Lumbar Spine - 2-3 Views (07/29/19 16:07) Vital Signs/I&O 07/29/19 16:08 Temp 36.4 Pulse 106 Resp 20 B/P (MAP) 129/92 (104) Departure Impression Primary Impression: Osteomyelitis of toe of right foot Additional Impression: Back strain Qualified Codes: S39.012A - Strain of muscle, fascia and tendon of lower back, initial encounter Disposition: 01 HOME, SELF-CARE Condition: Stable Departure-Patient Inst. Decision time for Depature: 16:10 Referrals: BRENDAN GRIMALDO BRETT D DO KIDO, TAKAAKI MD NO,LOCAL PHYSICIAN (PCP) Primary Care Physician Patient Instructions: Low Back Pain (DC), Osteomyelitis Add. Discharge Instructions: 1. Follow-up with a surgeon of your choosing to discuss further treatment and possible amputation or debridement of the toe. Antibiotics as directed meantime. All discharge instructions reviewed with patient and/or family. Voiced understanding. Scripts Doxycycline Hyclate (Doxycycline Hyclate) 100 Mg Tablet 100 MG PO BID, #20 TAB 0 Refills Prov: SHALONDA MEADOWS APRN 07/29/19 Cephalexin (Keflex) 500 Mg Capsule 500 MG PO Q6H, #28 CAP Prov: SHALONDA MEADOWS APRN 07/29/19 SHALONDA MEADOWS APRN Jul 29, 2019 16:10 POS
[2019-07-29] MEDS ORDERED: CEPH-507 PO (16:39)
[2019-07-29] MEDS ORDERED: DOXY100T2 PO (16:39)
[2019-07-29 16:44] LABS: BASOPHILS % (AUTO) 0 % (0-10); EOSINOPHILS # (AUTO) 0.4 10^3/uL (0.0-0.3); EOSINOPHILS % (AUTO) 4 % (0-10); HEMATOCRIT 43 % (40-54); LYMPHOCYTES # (AUTO) 1.1 X 10^3 (1.0-4.0); LYMPHOCYTES % (AUTO) 12 % (12-44); MEAN CORPUSCULAR HEMOGLOBIN 30 PG (25-34); MEAN CORPUSCULAR HGB CONC 33 G/DL (32-36); MEAN CORPUSCULAR VOLUME 91 FL (80-99); MEAN PLATELET VOLUME 8.8 FL (7.4-10.4); MONOCYTES # (AUTO) 0.7 X 10^3 (0.0-1.0); MONOCYTES % (AUTO) 8 % (0-12); NEUTROPHILS # (AUTO) 7.3 X 10^3 (1.8-7.8); NEUTROPHILS % (AUTO) 76 % (42-75); PLATELET COUNT 380 10^3/uL (130-400); RED CELL DISTRIBUTION WIDTH 14.7 % (10.0-14.5); WHITE BLOOD COUNT 9.5 10^3/uL (4.3-11.0)
[2019-07-29 16:58] LABS: BUN/CREATININE RATIO 16; CALCIUM 9.1 MG/DL (8.5-10.1); CARBON DIOXIDE 27 MMOL/L (21-32); CHLORIDE 103 MMOL/L (98-107); CREATININE SERUM 1.09 MG/DL (0.60-1.30); GFR ESTIMATED > 60; GLUCOSE 169 MG/DL (70-105); POTASSIUM 4.4 MMOL/L (3.6-5.0); SODIUM 139 MMOL/L (135-145)
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
--- NOTE | 2019-07-29 17:18 | Diagnostic Imaging Report ---
INDICATION: Right foot osteomyelitis. TIME OF EXAM: 4:55 PM COMPARISON is made with prior right foot radiographs from 07/14/2019. 3 views right foot were obtained. The metatarsals appear to be intact. Erosive changes involving the tuft of the 3rd toe is again seen, similar to prior exam. No soft tissue gas is identified. No fractures are identified. IMPRESSION: Overall similar appearance to the right foot when compared with the examination 2 weeks earlier with mild erosive changes of the tuft of the 3rd toe. No fractures are seen. Dictated by: Dictated on workstation # [id number]
[2019-07-29 17:21] VITALS: BP 129/92
== END 2019-07-29 17:21 | disposition home or self-care (01) ==
LOC: EDUNIT# 16:01 → ER 16:02
DX: S39.012A Strain of muscle, fascia and tendon of lower back, initial encounter (principal); E11.69 Type 2 diabetes mellitus with other specified complication; M86.9 Osteomyelitis, unspecified; Z88.0 Allergy status to penicillin; Z88.5 Allergy status to narcotic agent; Z77.22 Contact with and (suspected) exposure to environmental tobacco smoke (acute) (chronic); X58.XXXA Exposure to other specified factors, initial encounter
CPT/HCPCS: 36415; 72100; 73630; 80048; 85025

== ENCOUNTER 2023-03-28 15:03 | Observation (INO) | payer SELFPAY ==
[~2023-03-28] VITALS: Ht 190.5 cm; Wt 110.5 kg
[~2023-03-28 15:03] MED LIST changes: +DOXY100T2 PO; -SULF1TAB35 PO; +SULF1TAB38 PO
[2023-03-28] MEDS ORDERED: NS IV 1000 ML 3,000 ML ONE (15:15)
--- NOTE | 2023-03-28 15:23 | ED General ---
General Chief Complaint: Exposure Stated Complaint: POSSIBLE HEAT STROKE Nursing Triage Note: PT AMB TO RM 2 PT CO OF HEAT EXHAUSTION, STATES HAS BEEN OUTSIDE PICKING UP TRASH, APPROX 4 HOURS AGO STARTED VOMITING AND BECOMING DIZZY. PT VERY DIAPHORETIC. PT STATES HAS A COUPLE EPISODES OF BLACKING OUT. Source of Information: Patient Exam Limitations: No Limitations History of Present Illness Date Seen by Provider: Mar 28, 2023 Time Seen by Provider: 15:12 Initial Comments Patient is a 52-year-old male who presents to the emergency department ambulatory with a chief complaint of heat exhaustion. He states he has been outside all day picking up trash. He has been outside he states drinking water. He is a diabetic and takes atenolol for hypertension. He got dizzy and vomited a few hours ago. He also reports 2 syncopal episodes. At triage his blood pressure is 70s systolic. He is profusely diaphoretic. He is alert and oriented to person place and time. He complains of headache. He has some nausea. Denies chest pain or palpitations. No abdominal pain. Initial blood sugar in the 270 range. Timing/Duration: 1-3 Hours Severity: Severe Associated Systoms: Diaphoresis, Headaches, Malaise, Nausea/Vomiting (nausea without vomiting), Syncope, Weakness Allergies and Home Medications Allergies Coded Allergies: Penicillins (Verified Allergy, Unknown, 06/02/19) amoxicillin (Verified Allergy, Unknown, 06/02/19) morphine (Verified Adverse Reaction, Mild, 07/15/19) headache Patient Home Medication List Home Medication List Reviewed: Yes Cephalexin (Keflex) 500 Mg Capsule, 500 MG PO Q6H Prescribed by: SHALONDA MEADOWS on 07/29/19 1639 Doxycycline Hyclate (Doxycycline Hyclate) 100 Mg Tablet, 100 MG PO BID Prescribed by: SHALONDA MEADOWS on 07/29/19 1639 Review of Systems Review of Systems Constitutional: see HPI, dizziness, malaise, weakness EENTM: no symptoms reported Respiratory: no symptoms reported Cardiovascular: no symptoms reported Gastrointestinal: nausea, vomiting Genitourinary: no symptoms reported Musculoskeletal: no symptoms reported Skin: other (sweating) All Other Systems Reviewed Negative Unless Noted: Yes Past Vqtguvt-Mcxnyb-Ewojkd Hx Immunizations Up To Date Tetanus Booster (TDap): Unknown Seasonal Allergies Seasonal Allergies: No Past Medical History Surgeries: Yes (knee) Orthopedic Respiratory: No Cardiac: No Neurological: No Genitourinary: No Gastrointestinal: No Musculoskeletal: No Endocrine: Yes (noncompliant) Diabetes, Non-Insulin dep HEENT: No Cancer: No Psychosocial: No Integumentary: No Blood Disorders: No Adverse Reaction/Blood Tranf: No Family Medical History Cancer, Diabetes Physical Exam Vital Signs Vital Signs - First Documented 03/28/23 03/28/23 15:05 18:52 Temp 35.9 Pulse 90 Resp 16 B/P (MAP) 88/48 (61) Pulse Ox 10 Capillary Refill : Height, Weight, BMI Height: 6'2.00" Weight: 210lbs. 0oz. 95.037120so; 30.00 BMI Method:Actual General Appearance: WD/WN, Anxious Eyes: Bilateral Eye Normal Inspection, Bilateral Eye PERRL, Bilateral Eye EOMI HEENT: PERRL/EOMI Neck: Normal Inspection Respiratory: Lungs Clear, Normal Breath Sounds, No Accessory Muscle Use, No Respiratory Distress Cardiovascular: Regular Rate, Rhythm, Normal Peripheral Pulses, Tachycardia Gastrointestinal: Non Tender, Soft Extremity: Normal Inspection, Normal Range of Motion, No Pedal Edema Neurologic/Psychiatric: Alert, Oriented x3, No Motor/Sensory Deficits, Normal Mood/Affect, research asst II-XII Norm as Tested Skin: Normal Color, Diaphoresis Progress/Results/Core Measures Suspected Sepsis SIRS Temperature: Pulse: Respiratory Rate: Laboratory Tests 03/28/23 16:01: White Blood Count 15.7H Blood Pressure 88 /48 Mean: 61 Laboratory Tests 03/28/23 16:01: Creatinine 8.14H, Platelet Count 402H, Total Bilirubin 0.9 Results/Orders Lab Results Laboratory Tests Test 03/28/23 16:01 Range/Units White Blood Count 15.7 H 4.3-11.0 10^3/uL Red Blood Count 5.17 4.30-5.52 10^6/uL Hemoglobin 15.8 13.3-17.7 g/dL Hematocrit 47 40-54 % Mean Corpuscular Volume 92 80-99 fL Mean Corpuscular Hemoglobin 31 25-34 pg Mean Corpuscular Hemoglobin Concent 33 32-36 g/dL Red Cell Distribution Width 13.5 10.0-14.5 % Platelet Count 402 H 130-400 10^3/uL Mean Platelet Volume 9.7 9.0-12.2 fL Immature Granulocyte % (Auto) 1 % Neutrophils (%) (Auto) 70 42-75 % Lymphocytes (%) (Auto) 14 12-44 % Monocytes (%) (Auto) 13 H 0-12 % Eosinophils (%) (Auto) 1 0-10 % Basophils (%) (Auto) 1 0-10 % Neutrophils # (Auto) 11.1 H 1.8-7.8 10^3/uL Lymphocytes # (Auto) 2.2 1.0-4.0 10^3/uL Monocytes # (Auto) 2.1 H 0.0-1.0 10^3/uL Eosinophils # (Auto) 0.2 0.0-0.3 10^3/uL Basophils # (Auto) 0.1 0.0-0.1 10^3/uL Immature Granulocyte # (Auto) 0.1 0.0-0.1 10^3/uL Neutrophils % (Manual) 69 % Lymphocytes % (Manual) 19 % Monocytes % (Manual) 11 % Eosinophils % (Manual) 1 % Blood Morphology Comment NORMAL Sodium Level 131 L 135-145 MMOL/L Potassium Level 5.3 H 3.6-5.0 MMOL/L Chloride Level 87 L 98-107 MMOL/L Carbon Dioxide Level 21 21-32 MMOL/L Anion Gap 23 H 5-14 MMOL/L Blood Urea Nitrogen 53 H 7-18 MG/DL Creatinine 8.14 H 0.60-1.30 MG/DL Estimat Glomerular Filtration Rate 7 BUN/Creatinine Ratio 7 Glucose Level 270 H 70-105 MG/DL Calcium Level 10.8 H 8.5-10.1 MG/DL Corrected Calcium 8.5-10.1 MG/DL Total Bilirubin 0.9 0.1-1.0 MG/DL Aspartate Amino Transf (AST/SGOT) 45 H 5-34 U/L Alanine Aminotransferase (ALT/SGPT) 34 0-55 U/L Alkaline Phosphatase 65 40-136 U/L Total Creatine Kinase 2159 H 30-200 U/L Total Protein 8.6 H 6.4-8.2 GM/DL Albumin 4.9 H 3.2-4.5 GM/DL My Orders Orders - VIDYA GILLIS MD Ns Iv 1000 Ml (Sodium Chloride 0.9%) (03/28/23 15:15) Ed Iv/Invasive Line Start (03/28/23 15:23) Cbc With Automated Diff (03/28/23 15:23) Comprehensive Metabolic Panel (03/28/23 15:23) Creatine Kinase (03/28/23 15:23) Ondansetron Injection (Zofran Injectio (03/28/23 15:30) Manual Differential (03/28/23 16:01) Medications Given in ED Vital Signs/I&O 03/28/23 03/28/23 03/28/23 15:05 18:52 20:00 Temp 35.9 Pulse 90 90 Resp 16 B/P (MAP) 88/48 (61) 101/78 Pulse Ox 10 03/29/23 00:00 Intake Total 3000 ml Balance 3000 ml Capillary Refill : Blood Pressure Mean: 61 Progress Note #1: Time: 16:35 Progress Note Noted lab results of Acute renal Failure - Creatinine of 8. Discussed results with patient after he had (accidentally) pulled the IV it took 40min to establish. Patient will need transfer for nephrology services. Progress Note #2: Time: 16:44 Progress Note first call made to [facility] (as they have Nephrology) 1745 - Case discussed with Dr Chan, [facility] Hospitalist who advised he thought the patient could be managed at our facility without Nephrology in house. He asked that I speak to our hospitalist about this. I advised him that usually our hospitalists do not feel comfortable with serum creatinines over 5. He advised me that likely they would not even consult nephrology, but would hydrate and re- evaluate and then consult as needed. I acquiesced and stated I would run it by our hospitalist and see if she would admit. Progress Note #3: Time: 18:18 Progress Note Patient seen and evaluated by me. Eval today includes review of previous medical records and physical exam, CBC, CMP, CK as well as orders for UA. Pertinent physical exam findings, well-developed well-nourished male, heart rate 90-100. Room air sats adequate at 97%. Moderate distress due to nausea, diaphoresis, hypotension. Initial blood pressure 77 systolic. Patient is agitated and anxious. He is a difficult IV stick and the nurses are having hard time accessing a vein. He is quite belligerent. Heart is regular, lungs are clear, abdomen is soft mildly tender. No lower extremity edema is observed. No focal neurologic deficits, the patient is alert and oriented. Differential diagnosis based on history and physical exam, profound dehydration, rhabdomyolysis, concern for acute kidney injury, substance abuse Labs independently reviewed and interpreted by me. His CBC shows a total white blood cell count of 15.7 with a hemoglobin of 15 hematocrit of 47 platelet count elevated at 402. Patient has 13% monocytes. Chem-12 is reviewed with a serum sodium of 131, potassium slightly elevated at 5.3 chloride low at 87 bicarb of 21 BUN significantly elevated at 53 with a serum creatinine of 8.14, blood sugar 270. Liver functions are normal except for minimally elevated AST at 45. His total CK is 2159. Orders initially for 3 L of normal saline. The patient's temperature is normal, he is not hyperthermic. Attempted to keep the patient on the monitor throughout his ED visit however he kept pulling off monitoring devices and at 1 point removed his IV that took approximately [address]. Once labs started to come back patient was advised of his acute renal failure and I informed him of the risks of not undergoing treatment for this which could ultimately end up with him needing dialysis and it could possibly lead to without treatment. The patient was resigned to the fact that he needed to stay in the emergency department and either be transferred or admitted to the hospital. Another IV was placed under ultrasound guidance by nursing staff. IV fluids resumed. Case discussed initially with Dr. Rocio lucioist at [facility] who declined transfer as he stated we could handle rehydration and following his creatinine at our facility. I did let him know we did not have nephrology services in house. He again asked me to call our hospitalist which I did, Dr. Baptiste. I spoke with her and was able to do a telephone consult with Dr. Debbie Dukes. She agreed to follow the patient in consultation remotely. Patient will be admitted to cardiac stepdown unit inpatient for acute renal failure. Critical Care Note Critical Care Start Time: 15:12 Stop Time: 18:00 Total Time (minutes) 45 min critical care time in the eval and management of this hypotensive patient with ARF. Time includes review of prior medical records, aggressive IVF rehydration; review and interpretation of labs, serial re-evaluations; discussions with transferring facility, specialty services (nephrology) and hospitalist Departure Communication (Admissions) Time/Spoke to Admitting Phy: 18:[address] Schulz (hospitalist) obs to step down Time/Spoke to Consulting Phy: 17:[address] Debbie Dukes (nephrology) Impression Primary Impression: Acute renal failure Qualified Codes: N17.9 - Acute kidney failure, unspecified Additional Impressions: Dehydration after exertion Diabetes Qualified Codes: E13.29 - Other specified diabetes mellitus with other diabetic kidney complication Disposition: XFER SHT-TRM HOSP Condition: Stable Admissions Decision to Admit Reason: Admit from ER (General) Decision to Admit/Date: Mar 28, 2023 Time/Decision to Admit Time: 18:15 Departure-Patient Inst. Referrals: NO,LOCAL PHYSICIAN (PCP/Family) Primary Care Physician VIDYA GILLIS MD Mar 28, 2023 15:23
[2023-03-28] MEDS ORDERED: ONDANSETRON 4 MG/2 ML (SDV) Z0FRAN IVP ONE (15:30)
[2023-03-28 16:09] LABS: BASOPHILS # (AUTO) 0.1 10^3/uL (0.0-0.1); BASOPHILS % (AUTO) 1 % (0-10); EOSINOPHILS # (AUTO) 0.2 10^3/uL (0.0-0.3); EOSINOPHILS % (AUTO) 1 % (0-10); HEMATOCRIT 47 % (40-54); HEMOGLOBIN 15.8 g/dL (13.3-17.7); LYMPHOCYTES # (AUTO) 2.2 10^3/uL (1.0-4.0); LYMPHOCYTES % (AUTO) 14 % (12-44); MEAN CORPUSCULAR HEMOGLOBIN 31 pg (25-34); MEAN CORPUSCULAR HGB CONC 33 g/dL (32-36); MEAN CORPUSCULAR VOLUME 92 fL (80-99); MEAN PLATELET VOLUME 9.7 fL (9.0-12.2); MONOCYTES # (AUTO) 2.1 10^3/uL (0.0-1.0); MONOCYTES % (AUTO) 13 % (0-12); NEUTROPHILS # (AUTO) 11.1 10^3/uL (1.8-7.8); NEUTROPHILS % (AUTO) 70 % (42-75); PLATELET COUNT 402 10^3/uL (130-400); WHITE BLOOD COUNT 15.7 10^3/uL (4.3-11.0)
[2023-03-28 16:15] LABS: ALBUMIN 4.9 GM/DL (3.2-4.5)
[2023-03-28 16:16] LABS: CHLORIDE 87 MMOL/L (98-107); POTASSIUM 5.3 MMOL/L (3.6-5.0); SODIUM 131 MMOL/L (135-145)
[2023-03-28 16:17] LABS: CALCIUM 10.8 MG/DL (8.5-10.1)
[2023-03-28 16:18] LABS: GLUCOSE 270 MG/DL (70-105); TOTAL PROTEIN 8.6 GM/DL (6.4-8.2)
[2023-03-28 16:19] LABS: CARBON DIOXIDE 21 MMOL/L (21-32)
[2023-03-28 16:20] LABS: BILIRUBIN,TOTAL 0.9 MG/DL (0.1-1.0)
[2023-03-28 16:21] LABS: ALKALINE PHOSPHATASE 65 U/L (40-136); CREATININE SERUM 8.14 MG/DL (0.60-1.30); GFR ESTIMATED 7
[2023-03-28 16:22] LABS: BUN/CREATININE RATIO 7
[2023-03-28 16:24] LABS: ALANINE AMINOTRANSFERASE 34 U/L (0-55); CREATINE KINASE 2159 U/L (30-200)
[2023-03-28 16:47] LABS: EOSINOPHILS % (MANUAL) 1 %; LYMPHOCYTES % (MANUAL) 19 %; MONOCYTES % (MANUAL) 11 %; NEUTROPHILS % (MANUAL) 69 %
[2023-03-28 16:48] LABS: RBC MORPH NORMAL
[2023-03-28 20:30] VITALS: BP 91/43
[2023-03-28] MEDS ORDERED: ANTACID SUSP 30 ML UDC (MYLANTA) PO PRN (20:45)
[2023-03-28] MEDS ORDERED: NS IV 1000 ML 1,000 ML ONE (20:52)
[2023-03-28] MEDS ORDERED: ONDANSETRON 4 MG/2 ML (SDV) Z0FRAN IV PRN (21:30)
[2023-03-28] MEDS ORDERED: NS IV 1000 ML 1,000 ML IV SCH (21:30)
[2023-03-28 23:39] VITALS: BP 91/43
--- NOTE | 2023-03-29 09:14 | Short Stay Summary-Hospitalist ---
Short Stay Diagnosis D/C Date Mar 28, 2023 at 21:29 This note is for documentation purposes only. Patient was admitted for MARIE with pending nephrology consultation. Prior to being seen patient elected to leave AGAINST MEDICAL ADVICE. Patient was not seen or evaluated by me. EDSON VERMA MD Mar 29, 2023 09:14
== END 2023-03-28 21:29 | disposition left against medical advice (07) ==
LOC: EDUNIT# 15:03 → ER 15:05 → CSD 20:00
PROVIDERS: ADMIT Family Medicine; ATTEND Family Medicine
DX: E11.69 Type 2 diabetes mellitus with other specified complication (principal); N17.9 Acute kidney failure, unspecified; I10 Essential (primary) hypertension; R55 Syncope and collapse; E86.0 Dehydration
CPT/HCPCS: 36415; 80053; 82550; 85007; 85027